=== PATIENT | female | born 1995 | race African-American/Black ===

== ENCOUNTER 2020-03-22 22:59 | Emergency (ER) | payer BC ==
[~2020-03-22] VITALS: Ht 175.3 cm; Wt 69.5 kg
[2020-03-22 23:19] VITALS: BP 118/78
[2020-03-22] MEDS ORDERED: CEPH125S23 PO (23:24)
[2020-03-22] MEDS ORDERED: MUPI1OIN5 TP (23:24)
== END 2020-03-22 23:40 | disposition left against medical advice (07) ==
LOC: EMS 23:00
DX: M79.645 Pain in left finger(s) (principal); Z53.21 Procedure and treatment not carried out due to patient leaving prior to being seen by health care provider